=== PATIENT | female | born 1950 | race Caucasian/White ===

== ENCOUNTER 2017-12-04 05:26 | Inpatient (IN) | payer MEDICARE, BC ==
[2017-11-27 13:28] LABS: ADD MAN DIFF? NO
[2017-11-27 13:30] LABS: WHITE BLOOD COUNT 6.5 10^3/ul (4.8-10.8)
[2017-11-27 13:30] LABS: BASOPHIL # 0.1 10^3/ul (0.0-0.1); BASOPHILS % 1.2 % (0.0-2.0); EOSINOPHILS # 0.2 10^3/ul (0.0-0.5); EOSINOPHILS % 2.9 % (0.0-7.0); HEMATOCRIT 42.5 % (37.0-47.0); HEMOGLOBIN 13.6 g/dl (12.0-16.0); LYMPHOCYTES # 2.9 10^3/ul (0.8-2.9); LYMPHOCYTES % 43.9 % (15.0-51.0); MEAN CORPUSCULAR HEMOGLOBIN 29.2 pg (29.0-33.0); MEAN CORPUSCULAR VOLUME 91.4 fl (82.0-101.0); MEAN PLATELET VOLUME 9.5 fl (7.4-10.4); MONOCYTE # 0.4 10^3/ul (0.3-0.9); MONOCYTES % 6.6 % (0.0-11.0); NEUTROPHILS % 45.2 % (39.0-77.0); PLATELET COUNT 202 10^3/UL (140-415); RED BLOOD COUNT 4.65 10^6/ul (4.20-5.40); RED CELL DISTRIBUTION WIDTH 13.4 % (11.5-14.5)
[2017-11-27 13:47] LABS: ALANINE AMINOTRANSFERASE 28 IU/L (13-69); ALBUMIN 4.3 g/dl (3.3-4.9); ALBUMIN/GLOBULIN RATIO 1.26; ALKALINE PHOSPHATASE 73 IU/L (42-121); ANION GAP 10 (8-16); ASPARTATE AMINO TRANSFERASE 25 IU/L (15-46); BILIRUBIN,INDIRECT 0.3 mg/dl (0-1.1); BILIRUBIN,TOTAL 0.3 mg/dl (0.2-1.3); BLOOD UREA NITROGEN 15 mg/dl (7-20); CALCIUM 9.6 mg/dl (8.4-10.2); CARBON DIOXIDE 33 mmol/L (21-31); CHLORIDE 105 mmol/L (97-110); CREATININE 0.81 mg/dl (0.44-1.00); GLUCOSE 92 mg/dl (70-220); POTASSIUM 4.1 mmol/L (3.5-5.1); SODIUM 144 mmol/L (135-144); TOTAL PROTEIN 7.7 g/dl (6.1-8.1)
[2017-11-27 14:09] LABS: INR 1.04; PROTIME 13.7 Sec (11.9-14.9); PT RATIO 1.1
[2017-11-27 14:10] LABS: PARTIAL THROMBOPLASTIN TIME 29.4 Sec (25.0-35.0)
[2017-11-27 14:54] LABS: ERYTHROCYTE SEDIMENTATION RATE 10 mm/Hr (0-30)
[2017-11-30 16:23] LABS: ADD UMIC NO; UR ASCORBIC ACID NEGATIVE (NEGATIVE); UR BILIRUBIN (Dip) NEGATIVE (NEGATIVE); UR BLOOD (Dip) NEGATIVE (NEGATIVE); UR CLARITY CLEAR (CLEAR); UR COLOR STRAW (YELLOW); UR GLUCOSE (Dip) NEGATIVE (NEGATIVE); UR KETONES (Dip) NEGATIVE (NEGATIVE); UR LEUKOCYTE ESTERASE (Dip) NEGATIVE Leu/ul (NEGATIVE); UR NITRITE (Dip) NEGATIVE (NEGATIVE); UR SPECIFIC GRAVITY (Dip) 1.003 (1.003-1.030); UR TOTAL PROTEIN (Dip) NEGATIVE (NEGATIVE); UR UROBILINOGEN (Dip) NEGATIVE (NEGATIVE)
[2017-12-04] MEDS ORDERED: PROPOFOL 20 ML (06:49)
[2017-12-04] MEDS ORDERED: ROCURONIUM 50 MG INJ (06:49)
[2017-12-04] MEDS ORDERED: ONDANSETRON 4 MG INJ (06:50)
[2017-12-04] MEDS ORDERED: MIDAZOLAM 1 MG/ML 2 ML INJ (06:50)
[2017-12-04] MEDS ORDERED: METOCLOPRAMIDE 10 MG INJ (06:50)
[2017-12-04] MEDS ORDERED: FENTAnyl 50 MCG/ML VIAL (06:50)
[2017-12-04] MEDS: GELATIN SIZE 100 SPONGE (06:53)
[2017-12-04] MEDS: POLYMYXIN/BACITRACIN 1L IRRIG (06:53)
[2017-12-04] MEDS: THROMBIN 5000 UNIT VIAL (06:53)
[2017-12-04] MEDS: BUPIVACAINE 0.25% (MPF) 30 ML INJ (06:53)
[2017-12-04] MEDS ORDERED: CEFAZOLIN 2 GM/50 ML (PMX) 50 ML IVPB (06:58)
[2017-12-04 07:25] LABS: ADD UMIC YES; UR ASCORBIC ACID NEGATIVE (NEGATIVE); UR BACTERIA FEW /HPF (NONE SEEN); UR BILIRUBIN (Dip) NEGATIVE (NEGATIVE); UR BLOOD (Dip) 1+ mg/dL (NEGATIVE); UR CLARITY CLEAR (CLEAR); UR COLOR YELLOW (YELLOW); UR GLUCOSE (Dip) NEGATIVE (NEGATIVE); UR KETONES (Dip) NEGATIVE (NEGATIVE); UR LEUKOCYTE ESTERASE (Dip) NEGATIVE Leu/ul (NEGATIVE); UR NITRITE (Dip) NEGATIVE (NEGATIVE); UR RBC 2 /HPF (0-5); UR SPECIFIC GRAVITY (Dip) 1.018 (1.003-1.030); UR SQUAMOUS EPITHELIAL CELL FEW /HPF (FEW); UR TOTAL PROTEIN (Dip) NEGATIVE (NEGATIVE); UR UROBILINOGEN (Dip) NEGATIVE (NEGATIVE); UR WBC 0 /HPF (0-5)
[2017-12-04] MEDS ORDERED: hydrALAzine 20 MG INJ (07:28)
[2017-12-04] MEDS ORDERED: HYDROmorphONE 2 MG/ML SYG (07:37)
[2017-12-04] MEDS ORDERED: EPHEDrine 50 MG INJ ×2 (07:45→09:12)
[2017-12-04] MEDS ORDERED: EPHEDrine SULFATE 50 MG/5 ML SYG IV (09:30)
[2017-12-04] MEDS ORDERED: ONDANSETRON 4 MG INJ IV ×2 (09:30→18:00)
[2017-12-04] MEDS ORDERED: IPRATROPIUM (NEB) 0.5 MG/2.5 ML AMP HHN (09:30)
[2017-12-04] MEDS ORDERED: ALBUTEROL 0.083% (NEB) 2.5 MG/3 ML AMP HHN (09:30)
[2017-12-04] MEDS ORDERED: HYDROmorphONE 1 MG/5 ML IV SYRINGE IV ×3 (09:30)
[2017-12-04] MEDS ORDERED: DIPHENHYDRAMINE 50 MG INJ IV (09:30)
[2017-12-04] MEDS ORDERED: MEPERIDINE 25 MG INJ IV (09:30)
[2017-12-04] MEDS ORDERED: FUROSEMIDE 20 MG INJ (09:32)
[2017-12-04] MEDS ORDERED: GLYCOPYRROLATE 0.4 MG INJ (09:38)
[2017-12-04] MEDS ORDERED: NEOSTIGMINE 3 MG/3 ML SYRINGE (09:38)
[2017-12-04] MEDS ORDERED: DIPHENHYDRAMINE 50 MG CAP PO (10:30)
[2017-12-04] MEDS ORDERED: ACETAMINOPHEN 325 MG TAB PO (10:30)
[2017-12-04] MEDS ORDERED: HYDROCODONE/APAP (5/325) TAB PO ×2 (10:30)
[2017-12-04] MEDS ORDERED: ZOLPIDEM 5 MG TAB PO (10:30)
[2017-12-04] MEDS ORDERED: DIAZEPAM 5 MG/ML SYG IM (10:30)
[2017-12-04] MEDS ORDERED: AL HYDROX/MG HYDROX/SIMETH 30 ML CUP PO (10:30)
[2017-12-04] MEDS ORDERED: DIAZEPAM 5 MG TAB PO (10:30)
[2017-12-04] MEDS ORDERED: NALOXONE (0.4 MG/ML) INJ IV (10:30)
[2017-12-04] MEDS ORDERED: BETHANECHOL 25 MG TAB PO (10:30)
[2017-12-04] MEDS ORDERED: PROCHLORPERAZINE 10 MG TAB PO (10:30)
[2017-12-04] MEDS ORDERED: TRIMETHOBENZAMIDE 100 MG/ML VIAL IM (10:30)
[2017-12-04] MEDS ORDERED: NACL 0.9% 3 ML SYG IV (10:30)
[2017-12-04] MEDS ORDERED: HYDROmorphONE 0.2 MG/ML PCA (11:10)
[2017-12-04] MEDS: HYDROmorphONE 0.2 MG/ML PCA IV (11:20)
[2017-12-04] MEDS: DEXTROSE 5%-0.45% NACL 1,000 ML IV ×2 (11:51→22:06)
[2017-12-04] MEDS: CEFAZOLIN 1 GM/50 ML (PMX) 50 ML IVPB ×2 (11:51→17:05)
[2017-12-04] MEDS ORDERED: ACETAMINOPHEN 1000MG/100ML IV 100 ML (12:38)
[2017-12-04] MEDS: MONTELUKAST 10 MG TAB PO (21:19)
[2017-12-04] MEDS: GABAPENTIN 300 MG CAP PO (21:19)
[2017-12-04] MEDS: RANITIDINE 150 MG TAB PO (21:19)
[2017-12-04] MEDS: DULOXETINE 30 MG CAP DR PO (21:19)
[2017-12-04] MEDS: CEPASTAT LOZENGE MT (21:20)
[2017-12-04] MEDS: HYDROXYCHLOROQUINE 200 MG TAB PO (21:20)
[2017-12-04] MEDS: SULFASALAZINE 500 MG TAB PO (21:20)
[2017-12-05] MEDS: CEFAZOLIN 1 GM/50 ML (PMX) 50 ML IVPB ×2 (00:10→05:55)
[2017-12-05 05:25] LABS: HEMATOCRIT 34.5 % (37.0-47.0); HEMOGLOBIN 11.2 g/dl (12.0-16.0)
[2017-12-05] MEDS: LEVOTHYROXINE 125 MCG TAB PO (05:55)
[2017-12-05] MEDS: PANTOPRAZOLE (EC) 40 MG TAB PO (05:55)
[2017-12-05] MEDS: DEXTROSE 5%-0.45% NACL 1,000 ML IV (06:01)
[2017-12-05 06:10] LABS: ANION GAP 12 (8-16); BLOOD UREA NITROGEN 9 mg/dl (7-20); CALCIUM 8.5 mg/dl (8.4-10.2); CARBON DIOXIDE 29 mmol/L (21-31); CHLORIDE 106 mmol/L (97-110); CREATININE 0.72 mg/dl (0.44-1.00); GLUCOSE 151 mg/dl (70-220); POTASSIUM 3.9 mmol/L (3.5-5.1); SODIUM 143 mmol/L (135-144)
[2017-12-05] MEDS: GABAPENTIN 300 MG CAP PO ×2 (08:55→12:54)
[2017-12-05] MEDS: DOCUSATE SODIUM 100 MG CAP PO (08:55)
[2017-12-05] MEDS: ATORVASTATIN 20 MG TAB PO (08:55)
[2017-12-05] MEDS: FERROUS SULFATE (EC) 325 MG TAB PO ×3 (08:55→12:57)
[2017-12-05] MEDS: ESTRADIOL 1 MG TAB PO (08:55)
[2017-12-05] MEDS: ASCORBIC ACID 500 MG TAB PO (08:55)
[2017-12-05] MEDS: HYDROXYCHLOROQUINE 200 MG TAB PO (08:55)
[2017-12-05] MEDS: RANITIDINE 150 MG TAB PO (08:56)
[2017-12-05] MEDS: DULOXETINE 30 MG CAP DR PO (08:57)
[2017-12-05] MEDS: LISINOPRIL 10 MG TAB PO (08:57)
[2017-12-05] MEDS: AMILORIDE 5 MG TAB PO (08:57)
[2017-12-05] MEDS: SULFADIAZINE 500 MG TAB PO (09:00)
[2017-12-05] MEDS: SULFASALAZINE 500 MG TAB PO (09:00)
[2017-12-05] MEDS: AZATHIOPRINE 50 MG TAB PO (09:07)
[2017-12-05] MEDS: MYCOPHENOLATE 250 MG CAP PO (09:07)
[2017-12-05] MEDS: BETHANECHOL 25 MG TAB PO (09:14)
[2017-12-05 10:08] LABS: ADD UMIC YES; UR ASCORBIC ACID NEGATIVE (NEGATIVE); UR BILIRUBIN (Dip) NEGATIVE (NEGATIVE); UR BLOOD (Dip) 1+ mg/dL (NEGATIVE); UR CLARITY CLEAR (CLEAR); UR COLOR STRAW (YELLOW); UR GLUCOSE (Dip) NEGATIVE (NEGATIVE); UR KETONES (Dip) NEGATIVE (NEGATIVE); UR LEUKOCYTE ESTERASE (Dip) NEGATIVE Leu/ul (NEGATIVE); UR MUCUS FEW /HPF (NONE SEEN); UR NITRITE (Dip) NEGATIVE (NEGATIVE); UR RBC 7 /HPF (0-5); UR SPECIFIC GRAVITY (Dip) 1.008 (1.003-1.030); UR TOTAL PROTEIN (Dip) NEGATIVE (NEGATIVE); UR UROBILINOGEN (Dip) NEGATIVE (NEGATIVE); UR WBC 1 /HPF (0-5)
== END 2017-12-05 13:55 | disposition home or self-care (01) | DRG 517 ==
LOC: REC 05:26 → MS1 11:31
PROC: 0SP Lower Joints, Removal (ICD-10-PCS; principal; 2017-12-04 07:00)
PROC: 01NR0ZZ Release Sacral Nerve, Open Approach (ICD-10-PCS; 2017-12-04 07:00)
DX: T84.84XA Pain due to internal orthopedic prosthetic devices, implants and grafts, initial encounter (principal); Z98.1 Arthrodesis status; M25.78 Osteophyte, vertebrae; I10 Essential (primary) hypertension; K21.9 Gastro-esophageal reflux disease without esophagitis; M06.9 Rheumatoid arthritis, unspecified; M79.7 Fibromyalgia; E89.0 Postprocedural hypothyroidism; M54.18 Radiculopathy, sacral and sacrococcygeal region
CPT/HCPCS: 71046; 72020; 80048; 80053; 81001; 81003; 85014; 85018; 85025; 85610; 85651; 85730; 86850; 86900; 86901; 86920; 87086; 88300; 93005; 97116; 97161; 97530